=== PATIENT | female | born 1985 | race Caucasian/White ===

== ENCOUNTER 2016-09-05 03:39 | Emergency (ER) | payer MEDICAID ==
[~2016-09-05] VITALS: Ht 162.6 cm; Wt 88.9 kg
[2016-09-05 03:48] VITALS: BP_SYST 129
[2016-09-05] MEDS ORDERED: NACL 0.9% 1,000 ML IV ONE (03:57)
[2016-09-05 04:38] LABS: BASOPHILS % (AUTO) 0.1 % (0.0-2.0); EOSINOPHILS # (AUTO) 0.1 K/uL (0.0-0.4); EOSINOPHILS % (AUTO) 1.3 % (0.0-4.0); HEMATOCRIT 33.3 % (36-48); HEMOGLOBIN 11.1 g/dL (12.0-16.0); LYMPHOCYTES # (AUTO) 1.3 K/uL (1.0-5.5); LYMPHOCYTES % (AUTO) 16.4 % (20.5-51.5); MEAN CORPUSCULAR HEMOGLOBIN 27 pg (27-31); MEAN CORPUSCULAR HGB CONC 33 % (32-36); MEAN CORPUSCULAR VOLUME 80 fL (79.0-98.0); MONOCYTES # (AUTO) 0.7 K/uL (0.0-1.0); MONOCYTES % (AUTO) 9.4 % (1.7-9.3); NEUTROPHILS # (AUTO) 5.7 K/uL (1.8-7.7); NEUTROPHILS % (AUTO) 72.8 % (40.0-70.0); PLATELET COUNT (AUTO) 249 K/uL (130-430); RED BLOOD CELL COUNT(AUTO) 4.15 MIL/uL (4.2-6.2); RED CELL DISTRIBUTION WIDTH 14.4 % (9.0-15.0); WHITE BLOOD COUNT (AUTO) 7.8 K/uL (4.8-10.8)
[2016-09-05 04:39] LABS: CALCIUM 8.2 mg/dL (8.4-11.0); CREATININE 0.58 mg/dL (0.55-1.30); POTASSIUM 3.1 mmol/L (3.5-5.1)
[2016-09-05 04:44] LABS: ALBUMIN 2.5 g/dL (3.4-4.8); TOTAL BILIRUBIN 0.8 mg/dL (0.0-1.0); TOTAL PROTEIN, SERUM 6.7 g/dL (6.4-8.3)
[2016-09-05 05:27] LABS: BILIRUBIN,URINE NEGATIVE (NEGATIVE); CLARITY/URINE CLEAR (CLEAR); COLOR,URINE YELLOW (YELLOW); GLUCOSE,URINE NEGATIVE (NEGATIVE); KETONES,URINE NEGATIVE (NEGATIVE); LEUKOCYTE ESTERASE ,URINE 1+ (NEGATIVE); NITRITE, URINE NEGATIVE (NEGATIVE); PH,URINE 6.5 (5.0-8.0); PROTEIN URINE NEGATIVE (NEGATIVE); UROBILINOGEN,URINE 0.2 (0.2-1.0)
[2016-09-05 05:36] LABS: BLOOD, URINE TRACE (NEGATIVE)
[2016-09-05 05:39] LABS: BACTERIA,URINE FEW /HPF (None Seen)
[2016-09-05 05:41] LABS: MUCUS,URINE None Seen /LPF (None Seen)
[2016-09-05 05:55] VITALS: BP_SYST 119
== END 2016-09-05 05:55 | disposition home or self-care (01) ==
LOC: EDSTATUS 03:39 → SED 03:40
DX: O23.43 Unspecified infection of urinary tract in pregnancy, third trimester (principal); O26.893 Other specified pregnancy related conditions, third trimester; R19.7 Diarrhea, unspecified; Z3A.39 39 weeks gestation of pregnancy; Z88.2 Allergy status to sulfonamides
CPT/HCPCS: 36415; 59025; 80053; 81000; 85025; 87086; 96360; 99284; J7030

== ENCOUNTER 2023-12-16 11:36 | Emergency (ER) | payer MEDICAID, OTHER ==
[~2023-12-16] VITALS: Ht 162.6 cm; Wt 89.4 kg
[2023-12-16 11:42] VITALS: BP_SYST 128; PULSE 72; RESP 18; TEMP 98.3; O2SAT 98
[2023-12-16 12:55] LABS: BILIRUBIN,URINE NEGATIVE (NEGATIVE); COLOR,URINE YELLOW (YELLOW); GLUCOSE,URINE NEGATIVE (NEGATIVE); KETONES,URINE NEGATIVE (NEGATIVE); LEUKOCYTE ESTERASE ,URINE 1+ (NEGATIVE); NITRITE, URINE NEGATIVE (NEGATIVE); PH,URINE 7.5 (5.0-8.0); PROTEIN URINE NEGATIVE (NEGATIVE); UROBILINOGEN,URINE 0.2 (0.2-1.0)
[2023-12-16 12:57] LABS: BLOOD, URINE TRACE (NEGATIVE); CLARITY/URINE SLIGHTLY HAZY (CLEAR)
[2023-12-16 13:12] LABS: BACTERIA,URINE None Seen /HPF (None Seen)
[2023-12-16] MEDS: KETOROLAC TROMETHAMINE 60 MG/2 ML VIAL IM ONE (13:42)
[2023-12-16] MEDS ORDERED: OMEP20TA20 PO (13:48)
[2023-12-16 13:50] VITALS: BP_SYST 128; PULSE 72; RESP 18; TEMP 98.3; O2SAT 98
== END 2023-12-16 13:51 | disposition home or self-care (01) ==
LOC: SED 11:36
DX: G43.909 Migraine, unspecified, not intractable, without status migrainosus (principal); M54.2 Cervicalgia; R10.13 Epigastric pain; I10 Essential (primary) hypertension; K21.9 Gastro-esophageal reflux disease without esophagitis; F43.9 Reaction to severe stress, unspecified; Z88.2 Allergy status to sulfonamides; Z79.899 Other long term (current) drug therapy
CPT/HCPCS: 99283; 81001; 87086; 81025; 96372; J1885; 81000; 81015